=== PATIENT | male | born 1975 | race Caucasian/White ===

== ENCOUNTER 2018-05-09 02:10 | Emergency (ER) | payer OTHER ==
[~2018-05-09] VITALS: Ht 182.9 cm; Wt 110.2 kg
[~2018-05-09 02:10] MED LIST: ARIP2TAB3 PO; BUPR300T55 PO; DULO20CA PO; TRAZ-123 PO
[2018-05-09 02:15] VITALS: BP_SYST 181
--- NOTE | 2018-05-09 02:15 | NUR ---
Patient to ER bed 5 to gown for evaluation. Side rails up. Report given to NIKKI BEVERLY.
--- NOTE | 2018-05-09 02:20 | NUR ---
Patient AAO x4 sitting in bed, restless and diphoretic c/o groin/ dull testicular pain 8/ x 2 weeks. Patient denies trauma, denies nausea/ vomiting. Patient states pain is more in his right groin. No acute distress noted. Will continue to monitor.
[2018-05-09] MEDS ORDERED: NACL 0.9% 1,000 ML IV ONE (02:38)
--- NOTE | 2018-05-09 02:40 | NUR ---
ER at bedside examining patient.
[2018-05-09] MEDS ORDERED: DIPHENHYDRAMINE INJ 50 MG/ML VIAL IVP ONE ×2 (03:00→05:00)
[2018-05-09] MEDS ORDERED: MORPHINE 4 MG/ML INJ. SYRINGE IVP ONE ×2 (03:00→05:00)
[2018-05-09 03:12] LABS: BASOPHILS # (AUTO) 0.1 K/uL (0.0-0.2); EOSINOPHILS # (AUTO) 0.1 K/uL (0.0-0.4); EOSINOPHILS % (AUTO) 0.9 % (0.0-4.0); HEMATOCRIT 50.4 % (36-54); HEMOGLOBIN 17.6 g/dL (14.0-18.0); LYMPHOCYTES # (AUTO) 1.4 K/uL (1.0-5.5); LYMPHOCYTES % (AUTO) 20.4 % (20.5-51.5); MEAN CORPUSCULAR HEMOGLOBIN 33 pg (27-31); MEAN CORPUSCULAR HGB CONC 35 % (32-36); MEAN CORPUSCULAR VOLUME 94 fL (79.0-98.0); MONOCYTES # (AUTO) 0.3 K/uL (0.0-1.0); MONOCYTES % (AUTO) 4.7 % (1.7-9.3); NEUTROPHILS # (AUTO) 4.9 K/uL (1.8-7.7); PLATELET COUNT (AUTO) 271 K/uL (130-430); RED BLOOD CELL COUNT(AUTO) 5.35 MIL/uL (4.2-6.2); RED CELL DISTRIBUTION WIDTH 12.4 % (9.0-15.0); WHITE BLOOD COUNT (AUTO) 6.8 K/uL (4.8-10.8)
[2018-05-09 03:26] LABS: CALCIUM 9.4 mg/dL (8.4-11.0); CREATININE 0.96 mg/dL (0.55-1.30); POTASSIUM 3.5 mmol/L (3.5-5.1)
[2018-05-09 03:31] LABS: ALBUMIN 4.1 g/dL (3.4-4.8); TOTAL BILIRUBIN 0.7 mg/dL (0.0-1.0)
[2018-05-09] MEDS ORDERED: cefTRIAXone 0.5 GM in D5W 50 ML IV ONE (04:15)
[2018-05-09] MEDS ORDERED: LEVOFLOXACIN 500 MG TABLET PO ONE (04:15)
[2018-05-09] MEDS ORDERED: cefTRIAXone 1 GM VIAL ONE (04:25)
[2018-05-09] MEDS ORDERED: cefTRIAXone 1 GM IVPB PREMIX 50 ML IV ONE (04:26)
[2018-05-09 05:30] VITALS: BP_SYST 145
--- NOTE | 2018-05-09 05:30 | NUR ---
Patient given written and verbal discharge instructions and verbalizes understanding. ER MD discussed with patient the results and treatment provided. Patient in stable condition. ID arm band removed. IV catheter removed intact and dressing applied, no active bleeding. Rx of levaquin and tylenol with codeine given. Patient educated on pain management and to follow up with PMD. Pain Scale 0/10 . Opportunity for questions provided and answered. Medication side effect fact sheet provided.
== END 2018-05-09 05:30 | disposition home or self-care (01) ==
LOC: SED 02:10
DX: N50.819 Testicular pain, unspecified (principal); N45.1 Epididymitis; I10 Essential (primary) hypertension; F31.9 Bipolar disorder, unspecified; Z79.899 Other long term (current) drug therapy
CPT/HCPCS: 36415; 76870; 80053; 83605; 85025; 87040; 96361; 96365; 96375; 96376; 99285; J0696; J1200; J2270; J7030; 96366

== ENCOUNTER 2018-05-10 13:59 | Emergency (ER) | payer OTHER ==
[~2018-05-10] VITALS: Ht 182.9 cm; Wt 111.1 kg
[2018-05-10 14:03] VITALS: BP_SYST 147
[2018-05-10] MEDS ORDERED: NACL 0.9% 1,000 ML IV ONE (14:15)
[2018-05-10] MEDS ORDERED: ONDANSETRON HCL 4 MG/2 ML VIAL IVP ONE (14:15)
[2018-05-10] MEDS ORDERED: HYDROmorphone 2 MG/ML VIAL IVP ONE (14:15)
[2018-05-10 14:31] LABS: BILIRUBIN,URINE NEGATIVE (NEGATIVE); BLOOD, URINE 2+ (NEGATIVE); CLARITY/URINE CLEAR (CLEAR); COLOR,URINE YELLOW (YELLOW); GLUCOSE,URINE NEGATIVE (NEGATIVE); KETONES,URINE NEGATIVE (NEGATIVE); LEUKOCYTE ESTERASE ,URINE NEGATIVE (NEGATIVE); NITRITE, URINE NEGATIVE (NEGATIVE); PROTEIN URINE TRACE (NEGATIVE); UROBILINOGEN,URINE 0.2 (0.2-1.0)
[2018-05-10 14:41] LABS: BACTERIA,URINE RARE /HPF (None Seen); MUCUS,URINE None Seen /LPF (None Seen); RBC,URINE 0-3 /HPF (0-3); WBC,URINE 0-3 /HPF (0-3)
[2018-05-10 14:43] LABS: CALCIUM 9.2 mg/dL (8.4-11.0); CREATININE 0.95 mg/dL (0.55-1.30); POTASSIUM 3.7 mmol/L (3.5-5.1)
[2018-05-10 14:45] LABS: PROTHROMBIN TIME 9.8 SECS (9.5-12.5)
[2018-05-10 14:49] LABS: ALBUMIN 3.9 g/dL (3.4-4.8); TOTAL BILIRUBIN 0.5 mg/dL (0.0-1.0)
[2018-05-10] MEDS ORDERED: LEVOFLOXACIN 250 MG/D5W 50 ML IV ONE (15:15)
[2018-05-10] MEDS ORDERED: KETOROLAC TROMETHAMINE 30 MG VIAL IVP ONE (15:15)
[2018-05-10 16:15] VITALS: BP_SYST 135
[2018-05-10 16:49] LABS: BASOPHILS % (AUTO) 0.5 % (0.0-2.0); EOSINOPHILS # (AUTO) 0.1 K/uL (0.0-0.4); EOSINOPHILS % (AUTO) 1.9 % (0.0-4.0); HEMATOCRIT 48.8 % (36-54); HEMOGLOBIN 16.9 g/dL (14.0-18.0); LYMPHOCYTES # (AUTO) 1.1 K/uL (1.0-5.5); LYMPHOCYTES % (AUTO) 18.2 % (20.5-51.5); MEAN CORPUSCULAR HEMOGLOBIN 32 pg (27-31); MEAN CORPUSCULAR HGB CONC 35 % (32-36); MEAN CORPUSCULAR VOLUME 93 fL (79.0-98.0); MONOCYTES # (AUTO) 0.5 K/uL (0.0-1.0); MONOCYTES % (AUTO) 8.5 % (1.7-9.3); NEUTROPHILS # (AUTO) 4.4 K/uL (1.8-7.7); NEUTROPHILS % (AUTO) 70.9 % (40.0-70.0); PLATELET COUNT (AUTO) 279 K/uL (130-430); RED BLOOD CELL COUNT(AUTO) 5.22 MIL/uL (4.2-6.2); RED CELL DISTRIBUTION WIDTH 12.9 % (9.0-15.0); WHITE BLOOD COUNT (AUTO) 6.2 K/uL (4.8-10.8)
== END 2018-05-10 16:15 | disposition home or self-care (01) ==
LOC: SED 13:59
DX: N45.1 Epididymitis (principal); F32.9 Major depressive disorder, single episode, unspecified; F31.9 Bipolar disorder, unspecified; F43.10 Post-traumatic stress disorder, unspecified; Z90.49 Acquired absence of other specified parts of digestive tract
CPT/HCPCS: 36415; 74018; 76870; 80053; 81000; 83605; 85025; 85610; 87040; 96365; 96375; 99285; J1170; J1885; J1956; J2405; J7030

== ENCOUNTER 2018-05-14 11:51 | Emergency (ER) | payer OTHER ==
[~2018-05-14] VITALS: Ht 182.9 cm; Wt 113.4 kg
[2018-05-14 11:51] VITALS: BP_SYST 156
[2018-05-14] MEDS ORDERED: MORPHINE 4 MG/ML INJ. SYRINGE IVP ONE (12:15)
[2018-05-14] MEDS ORDERED: AZITHROMYCIN 250 MG TABLET PO ONE (12:15)
[2018-05-14] MEDS ORDERED: cefTRIAXone 250 MG VIAL IM ONE (12:15)
[2018-05-14 12:37] LABS: BASOPHILS % (AUTO) 0.9 % (0.0-2.0); EOSINOPHILS # (AUTO) 0.1 K/uL (0.0-0.4); EOSINOPHILS % (AUTO) 1.7 % (0.0-4.0); HEMATOCRIT 47.6 % (36-54); HEMOGLOBIN 16.4 g/dL (14.0-18.0); LYMPHOCYTES # (AUTO) 1.6 K/uL (1.0-5.5); LYMPHOCYTES % (AUTO) 28.6 % (20.5-51.5); MEAN CORPUSCULAR HEMOGLOBIN 33 pg (27-31); MEAN CORPUSCULAR HGB CONC 35 % (32-36); MEAN CORPUSCULAR VOLUME 95 fL (79.0-98.0); MONOCYTES # (AUTO) 0.6 K/uL (0.0-1.0); MONOCYTES % (AUTO) 11.1 % (1.7-9.3); NEUTROPHILS # (AUTO) 3.2 K/uL (1.8-7.7); NEUTROPHILS % (AUTO) 57.7 % (40.0-70.0); PLATELET COUNT (AUTO) 266 K/uL (130-430); RED BLOOD CELL COUNT(AUTO) 5.02 MIL/uL (4.2-6.2); RED CELL DISTRIBUTION WIDTH 13.3 % (9.0-15.0); WHITE BLOOD COUNT (AUTO) 5.5 K/uL (4.8-10.8)
[2018-05-14 12:42] LABS: BILIRUBIN,URINE NEGATIVE (NEGATIVE); BLOOD, URINE 2+ (NEGATIVE); CLARITY/URINE CLEAR (CLEAR); COLOR,URINE YELLOW (YELLOW); GLUCOSE,URINE NEGATIVE (NEGATIVE); KETONES,URINE TRACE (NEGATIVE); LEUKOCYTE ESTERASE ,URINE NEGATIVE (NEGATIVE); NITRITE, URINE NEGATIVE (NEGATIVE); PROTEIN URINE TRACE (NEGATIVE); UROBILINOGEN,URINE 0.2 (0.2-1.0)
[2018-05-14 12:49] LABS: CALCIUM 8.7 mg/dL (8.4-11.0); CREATININE 1.03 mg/dL (0.55-1.30); POTASSIUM 3.4 mmol/L (3.5-5.1)
[2018-05-14 12:54] LABS: ALBUMIN 3.6 g/dL (3.4-4.8); TOTAL BILIRUBIN 0.5 mg/dL (0.0-1.0)
[2018-05-14 13:12] LABS: BACTERIA,URINE FEW /HPF (None Seen); WBC,URINE 0-3 /HPF (0-3)
[2018-05-14 13:13] LABS: MUCUS,URINE None Seen /LPF (None Seen)
[2018-05-14 13:19] VITALS: BP_SYST 141
[2018-05-15 22:18] LABS: CHLAMYDIA TRACHOMATIS NAA Negative (Negative); NEISSERIA GONORRHOEAE NAA Negative (Negative)
== END 2018-05-14 13:21 | disposition home or self-care (01) ==
LOC: SED 11:51
DX: N45.1 Epididymitis (principal); F31.9 Bipolar disorder, unspecified; F41.9 Anxiety disorder, unspecified; Z90.49 Acquired absence of other specified parts of digestive tract; Z79.899 Other long term (current) drug therapy
CPT/HCPCS: 36415; 80053; 81000; 85025; 87491; 87591; 96372; 96374; 99284; J0696; J2270; Q0144

== ENCOUNTER 2018-06-20 17:03 | Emergency (ER) | payer OTHER ==
[~2018-06-20] VITALS: Ht 182.9 cm; Wt 113.4 kg
[2018-06-20 17:10] VITALS: BP_SYST 162
[2018-06-20] MEDS ORDERED: KETOROLAC TROMETHAMINE 60 MG/2 ML VIAL IM ONE (17:45)
[2018-06-20 17:56] LABS: CALCIUM 8.9 mg/dL (8.4-11.0); CREATININE 1.03 mg/dL (0.55-1.30); POTASSIUM 3.3 mmol/L (3.5-5.1)
[2018-06-20 18:01] LABS: ALBUMIN 3.8 g/dL (3.4-4.8); TOTAL BILIRUBIN 0.4 mg/dL (0.0-1.0)
[2018-06-20 19:26] LABS: BILIRUBIN,URINE NEGATIVE (NEGATIVE); BLOOD, URINE 1+ (NEGATIVE); CLARITY/URINE CLEAR (CLEAR); COLOR,URINE YELLOW (YELLOW); GLUCOSE,URINE NEGATIVE (NEGATIVE); KETONES,URINE NEGATIVE (NEGATIVE); LEUKOCYTE ESTERASE ,URINE NEGATIVE (NEGATIVE); NITRITE, URINE NEGATIVE (NEGATIVE); PROTEIN URINE NEGATIVE (NEGATIVE); UROBILINOGEN,URINE 0.2 (0.2-1.0)
[2018-06-20 19:47] LABS: BACTERIA,URINE RARE /HPF (None Seen); MUCUS,URINE None Seen /LPF (None Seen); WBC,URINE 0-3 /HPF (0-3); YEAST,URINE None Seen /HPF (None Seen)
[2018-06-20 20:05] VITALS: BP_SYST 138
== END 2018-06-20 20:05 | disposition home or self-care (01) ==
LOC: SED 17:03
DX: N45.1 Epididymitis (principal); F31.9 Bipolar disorder, unspecified; F41.9 Anxiety disorder, unspecified; Z90.49 Acquired absence of other specified parts of digestive tract; Z79.899 Other long term (current) drug therapy
CPT/HCPCS: 36415; 76870; 80053; 81000; 96372; 99285; J1885

== ENCOUNTER 2018-08-14 18:07 | Emergency (ER) | payer OTHER ==
[~2018-08-14] VITALS: Ht 182.9 cm; Wt 115.7 kg
[2018-08-14 18:13] VITALS: BP_SYST 157
[2018-08-14] MEDS ORDERED: NACL 0.9% 1,000 ML IV ONE (18:33)
[2018-08-14 18:41] LABS: BILIRUBIN,URINE NEGATIVE (NEGATIVE); BLOOD, URINE 1+ (NEGATIVE); CLARITY/URINE CLEAR (CLEAR); COLOR,URINE YELLOW (YELLOW); GLUCOSE,URINE NEGATIVE (NEGATIVE); KETONES,URINE NEGATIVE (NEGATIVE); LEUKOCYTE ESTERASE ,URINE NEGATIVE (NEGATIVE); NITRITE, URINE NEGATIVE (NEGATIVE); PH,URINE 6.5 (5.0-8.0); PROTEIN URINE NEGATIVE (NEGATIVE); UROBILINOGEN,URINE 0.2 (0.2-1.0)
[2018-08-14] MEDS ORDERED: KETOROLAC TROMETHAMINE 30 MG VIAL IVP ONE (18:45)
[2018-08-14] MEDS ORDERED: ONDANSETRON HCL 4 MG/2 ML VIAL IVP ONE (18:45)
[2018-08-14] MEDS ORDERED: DIPHENHYDRAMINE INJ 50 MG/ML VIAL IVP ONE (18:45)
[2018-08-14] MEDS ORDERED: MORPHINE 4 MG/ML INJ. SYRINGE IVP ONE (18:45)
[2018-08-14 18:46] LABS: BACTERIA,URINE RARE /HPF (None Seen); RBC,URINE 0-3 /HPF (0-3); WBC,URINE 0-3 /HPF (0-3)
[2018-08-14 18:54] LABS: BASOPHILS # (AUTO) 0.1 K/uL (0.0-0.2); BASOPHILS % (AUTO) 1.5 % (0.0-2.0); EOSINOPHILS # (AUTO) 0.1 K/uL (0.0-0.4); EOSINOPHILS % (AUTO) 1.5 % (0.0-4.0); HEMATOCRIT 46.4 % (36-54); HEMOGLOBIN 15.9 g/dL (14.0-18.0); LYMPHOCYTES # (AUTO) 1.6 K/uL (1.0-5.5); MEAN CORPUSCULAR HEMOGLOBIN 33 pg (27-31); MEAN CORPUSCULAR HGB CONC 34 % (32-36); MEAN CORPUSCULAR VOLUME 97 fL (79.0-98.0); MONOCYTES # (AUTO) 0.5 K/uL (0.0-1.0); MONOCYTES % (AUTO) 6.8 % (1.7-9.3); NEUTROPHILS # (AUTO) 4.5 K/uL (1.8-7.7); NEUTROPHILS % (AUTO) 66.2 % (40.0-70.0); PLATELET COUNT (AUTO) 319 K/uL (130-430); RED CELL DISTRIBUTION WIDTH 13.1 % (9.0-15.0); WHITE BLOOD COUNT (AUTO) 6.8 K/uL (4.8-10.8)
[2018-08-14 19:03] LABS: CALCIUM 8.8 mg/dL (8.4-11.0); CREATININE 0.98 mg/dL (0.55-1.30)
[2018-08-14 19:07] LABS: ALBUMIN 3.7 g/dL (3.4-4.8); TOTAL BILIRUBIN 0.4 mg/dL (0.0-1.0)
[2018-08-14] MEDS ORDERED: MORPHINE 2 MG/ML INJ. SYRINGE IVP ONE (21:30)
[2018-08-14] MEDS ORDERED: MORPHINE 2 MG/ML INJ. SYRINGE ONE (21:37)
[2018-08-14 22:13] VITALS: BP_SYST 142
== END 2018-08-14 22:13 | disposition home or self-care (01) ==
LOC: SED 18:07
DX: N50.3 Cyst of epididymis (principal); N45.1 Epididymitis; N50.812 Left testicular pain; F31.9 Bipolar disorder, unspecified; F41.9 Anxiety disorder, unspecified; F43.10 Post-traumatic stress disorder, unspecified; Z90.49 Acquired absence of other specified parts of digestive tract; Z79.899 Other long term (current) drug therapy
CPT/HCPCS: 36415; 74018; 76870; 80053; 81000; 85025; 96365; 96375; 96376; 99284; J1200; J1885; J1956; J2270 ×2; J2405; J7030

== ENCOUNTER 2018-08-20 14:27 | Emergency (ER) | payer MEDICAID, OTHER ==
[~2018-08-20] VITALS: Ht 182.9 cm; Wt 115.7 kg
[2018-08-20 14:33] VITALS: BP_SYST 160
--- NOTE | 2018-08-20 14:36 | NUR ---
Patient to ER bed 05 to gown for evaluation. Side rails up.
--- NOTE | 2018-08-20 14:44 | NUR ---
BUDDY Ortiz at bedside examining patient.
--- NOTE | 2018-08-20 14:45 | NUR ---
Pt C/O right and left testicular pain since 1100 this morning. Pt was discharged for the same chief complaint last and has been having difficulty filling prescriptions. Pt stats pain radiates from the left to the right teste and is an 8/10. Vital signs are stable and will continue to monitor.
--- NOTE | 2018-08-20 14:59 | NUR ---
Radiology at bedside for xray
[2018-08-20] MEDS ORDERED: LEVOFLOXACIN 500 MG TABLET PO ONE (15:00)
[2018-08-20] MEDS ORDERED: HYDROcodone/ACETAMIN 5-325 MG TAB (NORCO/ VICODIN) PO ONE (15:00)
--- NOTE | 2018-08-20 15:57 | NUR ---
Pt resting quietly in bed, no acute distress noted.
[2018-08-20 16:05] VITALS: BP_SYST 150
--- NOTE | 2018-08-20 16:05 | NUR ---
Patient given written and verbal discharge instructions and verbalizes understanding. ER MD discussed with patient the results and treatment provided. Patient in stable condition. ID arm band removed. Rx of Ibuprofen, Levaquin, and [place] given. Patient educated on pain management and to follow up with PMD. Pain Scale 4/10. Given prescription for pain management to control pain at home. Opportunity for questions provided and answered. Medication side effect fact sheet provided.
== END 2018-08-20 16:05 | disposition home or self-care (01) ==
LOC: SED 14:27
DX: S62.317A Displaced fracture of base of fifth metacarpal bone, left hand, initial encounter for closed fracture (principal); N45.1 Epididymitis; F43.10 Post-traumatic stress disorder, unspecified; F41.9 Anxiety disorder, unspecified; F31.9 Bipolar disorder, unspecified; R03.0 Elevated blood-pressure reading, without diagnosis of hypertension; Z90.49 Acquired absence of other specified parts of digestive tract; Z79.899 Other long term (current) drug therapy; W20.8XXA Other cause of strike by thrown, projected or falling object, initial encounter; Y93.89 Activity, other specified; Y92.89 Other specified places as the place of occurrence of the external cause; Y99.8 Other external cause status
CPT/HCPCS: 99283

== ENCOUNTER 2018-09-14 19:51 | Emergency (ER) | payer MEDICAID, OTHER ==
[~2018-09-14] VITALS: Ht 182.9 cm; Wt 124.7 kg
[2018-09-14 20:09] VITALS: BP_SYST 144
== END 2018-09-14 21:31 | disposition left against medical advice (07) ==
LOC: SED 19:51
DX: K08.89 Other specified disorders of teeth and supporting structures (principal); Z53.21 Procedure and treatment not carried out due to patient leaving prior to being seen by health care provider

== ENCOUNTER 2018-09-15 14:35 | Emergency (ER) | payer OTHER, MEDICAID ==
[~2018-09-15] VITALS: Ht 182.9 cm; Wt 124.7 kg
[2018-09-15 14:53] VITALS: BP_SYST 191
[2018-09-15 15:42] VITALS: BP_SYST 162
== END 2018-09-15 15:42 | disposition home or self-care (01) ==
LOC: SED 14:35
DX: K03.81 Cracked tooth (principal); F43.10 Post-traumatic stress disorder, unspecified; F41.9 Anxiety disorder, unspecified; F31.9 Bipolar disorder, unspecified; I10 Essential (primary) hypertension; Z90.49 Acquired absence of other specified parts of digestive tract; Z79.899 Other long term (current) drug therapy
CPT/HCPCS: 99283

== ENCOUNTER 2018-09-22 03:35 | Emergency (ER) | payer OTHER, MEDICAID ==
[~2018-09-22] VITALS: Ht 182.9 cm; Wt 124.7 kg
[2018-09-22 04:05] VITALS: BP_SYST 164
--- NOTE | 2018-09-22 04:05 | NUR ---
Pt placed to ER bed 08. Pt c/o Right testicular pain that radiates into right groin x 4 days. +nausea, urinary frequency of 5 times/day. Denies dysuria. Pt has hx of epididymitis. Pt also c/o right lower molar pain since June. Pt states that he has a dentist appointment for tooth extraction on October 01.
--- NOTE | 2018-09-22 04:15 | NUR ---
Dr. Salmeorn at bedside.
[2018-09-22] MEDS ORDERED: AZITHROMYCIN 250 MG TABLET PO ONE (04:30)
[2018-09-22] MEDS ORDERED: KETOROLAC TROMETHAMINE 60 MG/2 ML VIAL IM ONE (04:30)
[2018-09-22] MEDS ORDERED: cefTRIAXone 250 MG VIAL IM ONE (04:30)
[2018-09-22] MEDS ORDERED: LIDOCAINE 1%, 20 ML MDV 20 ML ONE (04:42)
[2018-09-22 05:18] VITALS: BP_SYST 124
--- NOTE | 2018-09-22 05:18 | NUR ---
Patient given written and verbal discharge instructions and verbalizes understanding. ER MD discussed with patient the results and treatment provided. Patient in stable condition. ID arm band removed. Rx of Motrin, Tramadol, and Doxycycline given. Patient educated on pain management and to follow up with PMD. Pain Scale 2/10. Opportunity for questions provided and answered. Medication side effect fact sheet provided.
== END 2018-09-22 05:18 | disposition home or self-care (01) ==
LOC: SED 03:35
DX: N45.1 Epididymitis (principal); K03.81 Cracked tooth
CPT/HCPCS: 96372; 99283; J0696; J1885; J2001; Q0144

== ENCOUNTER 2018-09-29 03:33 | Emergency (ER) | payer MEDICAID, OTHER ==
[~2018-09-29] VITALS: Ht 182.9 cm; Wt 117.9 kg
[2018-09-29 03:44] VITALS: BP_SYST 165
--- NOTE | 2018-09-29 03:51 | NUR ---
Patient to ER bed 5 to gown for evaluation. Side rails up. Report given to NIKKI Delvalle.
--- NOTE | 2018-09-29 03:51 | NUR ---
Right testicular swelling and pain, radiating to right pelvis x 2 days. Pt seen here in ER 09/22/18 for same s/s, tx with Azithromycin and Rocephin and completed most of doxycycline with 5 pills left. + nausea. Denies hematuria, dysuria or penile discharge.
--- NOTE | 2018-09-29 04:10 | NUR ---
Dr. Davidson at bedside to assess pt. No testicular swelling noted. Pt c/o severe pain when MD assesses for Right inguinal hernia, no hernia present. Pt placed in gown, awaiting for U/S.
--- NOTE | 2018-09-29 04:25 | NUR ---
# 20 gauge angiocath placed to LAC. Use of asceptic technique. Opsite placed over site. Blood return noted. Blood for lab drawn from site. Flushed with 10 cc of normal saline. No evidence of infiltration noted. Patient tolerated well.
[2018-09-29] MEDS ORDERED: MORPHINE 4 MG/ML INJ. SYRINGE IVP ONE ×2 (04:30→05:15)
[2018-09-29 05:02] LABS: RED BLOOD CELL COUNT(AUTO) 4.84 MIL/uL (4.2-6.2); WHITE BLOOD COUNT (AUTO) 6.9 K/uL (4.8-10.8)
[2018-09-29 05:03] LABS: BASOPHILS % (AUTO) 1.1 % (0.0-2.0); EOSINOPHILS % (AUTO) 1.8 % (0.0-4.0); HEMATOCRIT 45.6 % (36-54); HEMOGLOBIN 15.7 g/dL (14.0-18.0); LYMPHOCYTES # (AUTO) 2.1 K/uL (1.0-5.5); LYMPHOCYTES % (AUTO) 29.9 % (20.5-51.5); MEAN CORPUSCULAR HEMOGLOBIN 32 pg (27-31); MEAN CORPUSCULAR HGB CONC 34 % (32-36); MEAN CORPUSCULAR VOLUME 94 fL (79.0-98.0); MONOCYTES # (AUTO) 0.6 K/uL (0.0-1.0); MONOCYTES % (AUTO) 8.5 % (1.7-9.3); NEUTROPHILS % (AUTO) 58.7 % (40.0-70.0); PLATELET COUNT (AUTO) 369 K/uL (130-430); RED CELL DISTRIBUTION WIDTH 12.5 % (9.0-15.0)
[2018-09-29 05:04] LABS: BASOPHILS # (AUTO) 0.1 K/uL (0.0-0.2); EOSINOPHILS # (AUTO) 0.1 K/uL (0.0-0.4)
[2018-09-29 05:05] LABS: ALBUMIN 3.6 g/dL (3.4-4.8); CALCIUM 9.1 mg/dL (8.4-11.0); CREATININE 1.01 mg/dL (0.55-1.30); POTASSIUM 3.5 mmol/L (3.5-5.1); TOTAL BILIRUBIN 0.4 mg/dL (0.0-1.0)
[2018-09-29 05:08] LABS: BILIRUBIN,URINE NEGATIVE (NEGATIVE); BLOOD, URINE TRACE (NEGATIVE); CLARITY/URINE CLEAR (CLEAR); COLOR,URINE YELLOW (YELLOW); GLUCOSE,URINE NEGATIVE (NEGATIVE); KETONES,URINE NEGATIVE (NEGATIVE); LEUKOCYTE ESTERASE ,URINE TRACE (NEGATIVE); NITRITE, URINE NEGATIVE (NEGATIVE); PH,URINE 5.5 (5.0-8.0); PROTEIN URINE NEGATIVE (NEGATIVE); UROBILINOGEN,URINE 0.2 (0.2-1.0)
[2018-09-29 05:09] LABS: BACTERIA,URINE FEW /HPF (None Seen); MUCUS,URINE None Seen /LPF (None Seen); RBC,URINE 0-3 /HPF (0-3)
--- NOTE | 2018-09-29 05:10 | NUR ---
Pt c/o pain to Right testicle 01/30. Dr. Davidson notified.
--- NOTE | 2018-09-29 05:40 | NUR ---
Pt returns from U/S, no needs verbalized at this time.
--- NOTE | 2018-09-29 06:06 | NUR ---
Dr. Davidson at bedside to discuss U/S results.
[2018-09-29 06:20] VITALS: BP_SYST 135
--- NOTE | 2018-09-29 06:20 | NUR ---
Patient given written and verbal discharge instructions and verbalizes understanding. ER MD discussed with patient the results and treatment provided. Patient in stable condition. ID arm band removed. IV catheter removed intact and dressing applied, no active bleeding. Rx of [place] given. Patient educated on pain management and to follow up with PMD. Pain Scale 2/10, tolerable. Opportunity for questions provided and answered. Medication side effect fact sheet provided.
== END 2018-09-29 06:20 | disposition home or self-care (01) ==
LOC: SED 03:33
DX: N43.3 Hydrocele, unspecified (principal); I10 Essential (primary) hypertension; F41.9 Anxiety disorder, unspecified; F31.9 Bipolar disorder, unspecified; F43.10 Post-traumatic stress disorder, unspecified; Z79.899 Other long term (current) drug therapy
CPT/HCPCS: 36415; 76870; 80053; 81000; 85025; 96374; 96375; 99284; J2270

== ENCOUNTER 2018-10-03 22:46 | Emergency (ER) | payer MEDICAID, OTHER ==
[~2018-10-03] VITALS: Ht 182.9 cm; Wt 117.9 kg
[2018-10-03 22:58] VITALS: BP_SYST 181
--- NOTE | 2018-10-03 23:02 | NUR ---
Patient triaged and placed in waiting room. VSS and patient appears in no acute distress at this time. Accompanied by , awaiting available bed, and MD notified of need for MSE.
[2018-10-03 23:55] LABS: BASOPHILS # (AUTO) 0.1 K/uL (0.0-0.2); EOSINOPHILS # (AUTO) 0.1 K/uL (0.0-0.4); EOSINOPHILS % (AUTO) 0.9 % (0.0-4.0); HEMATOCRIT 46.8 % (36-54); HEMOGLOBIN 16.2 g/dL (14.0-18.0); LYMPHOCYTES # (AUTO) 2.7 K/uL (1.0-5.5); LYMPHOCYTES % (AUTO) 29.8 % (20.5-51.5); MEAN CORPUSCULAR HEMOGLOBIN 33 pg (27-31); MEAN CORPUSCULAR HGB CONC 35 % (32-36); MEAN CORPUSCULAR VOLUME 96 fL (79.0-98.0); MONOCYTES # (AUTO) 0.7 K/uL (0.0-1.0); MONOCYTES % (AUTO) 7.6 % (1.7-9.3); NEUTROPHILS # (AUTO) 5.4 K/uL (1.8-7.7); NEUTROPHILS % (AUTO) 60.7 % (40.0-70.0); PLATELET COUNT (AUTO) 405 K/uL (130-430); RED BLOOD CELL COUNT(AUTO) 4.89 MIL/uL (4.2-6.2); RED CELL DISTRIBUTION WIDTH 12.3 % (9.0-15.0)
[2018-10-04 00:06] LABS: CALCIUM 9.4 mg/dL (8.4-11.0); CREATININE 0.99 mg/dL (0.55-1.30); POTASSIUM 3.6 mmol/L (3.5-5.1)
[2018-10-04 00:11] LABS: ALBUMIN 3.6 g/dL (3.4-4.8); TOTAL BILIRUBIN 0.4 mg/dL (0.0-1.0)
--- NOTE | 2018-10-04 01:26 | NUR ---
Patient to ER bed 7 to gown for evaluation. Side rails up. Report given to NIKKI Avila.
--- NOTE | 2018-10-04 01:38 | NUR ---
Patient arrived with right testicular swelling and pain. Patient is aaox4 and able to verbalize his needs. Dull pain of / beginning on 10/03/18 at 1600. Denies any chest pain, n/v, chills, or fever. Breathing is equal and unlabored. Patient is able to ambulate to the restroom with a steady gait.
--- NOTE | 2018-10-04 01:45 | NUR ---
ER at bedside examining patient.
[2018-10-04 02:47] VITALS: BP_SYST 144
--- NOTE | 2018-10-04 02:47 | NUR ---
Patient given written and verbal discharge instructions and verbalizes understanding. ER MD discussed with patient the results and treatment provided. Patient in stable condition. ID arm band removed. Rx of [place] 10/325mg given. Patient educated on pain management and to follow up with PMD. Pain Scale 3/10. Opportunity for questions provided and answered. Medication side effect fact sheet provided.
== END 2018-10-04 02:47 | disposition home or self-care (01) ==
LOC: SED 22:46
DX: N43.3 Hydrocele, unspecified (principal); F31.9 Bipolar disorder, unspecified; F41.9 Anxiety disorder, unspecified; F43.10 Post-traumatic stress disorder, unspecified; I10 Essential (primary) hypertension; Z79.899 Other long term (current) drug therapy
CPT/HCPCS: 36415; 80053; 85025; 99283

== ENCOUNTER 2018-10-19 14:16 | Emergency (ER) | payer MEDICAID, OTHER ==
[~2018-10-19] VITALS: Ht 182.9 cm; Wt 117.9 kg
[~2018-10-19 14:16] MED LIST changes: -TRAZ-123 PO; +TRAZ-218 PO
[2018-10-19 14:21] VITALS: BP_SYST 128
[2018-10-19] MEDS ORDERED: KETOROLAC TROMETHAMINE 60 MG/2 ML VIAL IM ONE (14:30)
[2018-10-19 17:22] VITALS: BP_SYST 137
== END 2018-10-19 17:22 | disposition home or self-care (01) ==
LOC: SED 14:16
DX: N50.82 Scrotal pain (principal); F41.9 Anxiety disorder, unspecified; F43.10 Post-traumatic stress disorder, unspecified; F31.9 Bipolar disorder, unspecified; Z90.49 Acquired absence of other specified parts of digestive tract; Z79.899 Other long term (current) drug therapy
CPT/HCPCS: 76870; 96372; 99284; J1885

== ENCOUNTER 2018-10-27 16:18 | Emergency (ER) | payer MEDICAID, OTHER ==
[~2018-10-27 16:18] MED LIST changes: +TRAZ-123 PO; -TRAZ-218 PO
[2018-10-27] MEDS ORDERED: KETOROLAC TROMETHAMINE 60 MG/2 ML VIAL IM ONE (18:14)
[2018-10-27] MEDS ORDERED: ONDANSETRON 4 MG ODT TAB ONE (18:14)
[2018-10-27] MEDS ORDERED: CIPROFLOXACIN HCL 500 MG TABLET ONE (18:15)
[2018-10-27] MEDS ORDERED: MORPHINE SULFATE 10 MG/ML VIAL ONE (18:16)
[2018-10-28 14:26] LABS: BILIRUBIN,URINE NEGATIVE (NEGATIVE); BLOOD, URINE 1+ (NEGATIVE); CLARITY/URINE CLEAR (CLEAR); COLOR,URINE YELLOW (YELLOW); GLUCOSE,URINE NEGATIVE (NEGATIVE); KETONES,URINE NEGATIVE (NEGATIVE); LEUKOCYTE ESTERASE ,URINE NEGATIVE (NEGATIVE); NITRITE, URINE NEGATIVE (NEGATIVE); PROTEIN URINE NEGATIVE (NEGATIVE); UROBILINOGEN,URINE 0.2 (0.2-1.0)
[2018-10-28 14:28] LABS: BACTERIA,URINE RARE /HPF (None Seen); RBC,URINE 0-3 /HPF (0-3); WBC,URINE 0-3 /HPF (0-3)
[2018-10-28 14:30] LABS: CALCIUM 9.1 mg/dL (8.4-11.0); CREATININE 0.9 mg/dL (0.55-1.30); POTASSIUM 3.8 mmol/L (3.5-5.1)
[2018-10-28 14:31] LABS: HEMATOCRIT 43.1 % (36-54); HEMOGLOBIN 15.2 g/dL (14.0-18.0); MEAN CORPUSCULAR HEMOGLOBIN 33 pg (27-31); MEAN CORPUSCULAR HGB CONC 35 % (32-36); MEAN CORPUSCULAR VOLUME 94 fL (79.0-98.0); RED BLOOD CELL COUNT(AUTO) 4.58 MIL/uL (4.2-6.2); WHITE BLOOD COUNT (AUTO) 6.3 K/uL (4.8-10.8)
[2018-10-28 14:32] LABS: BASOPHILS % (AUTO) 0.7 % (0.0-2.0); EOSINOPHILS % (AUTO) 0.6 % (0.0-4.0); LYMPHOCYTES # (AUTO) 1.7 K/uL (1.0-5.5); LYMPHOCYTES % (AUTO) 27.3 % (20.5-51.5); MONOCYTES # (AUTO) 0.5 K/uL (0.0-1.0); MONOCYTES % (AUTO) 7.8 % (1.7-9.3); NEUTROPHILS % (AUTO) 63.6 % (40.0-70.0); PLATELET COUNT (AUTO) 264 K/uL (130-430); RED CELL DISTRIBUTION WIDTH 13.1 % (9.0-15.0)
== END 2018-10-27 19:16 | disposition home or self-care (01) ==
LOC: SED 16:18
DX: N45.1 Epididymitis (principal); F43.10 Post-traumatic stress disorder, unspecified; F31.9 Bipolar disorder, unspecified
CPT/HCPCS: 36415; 76870; 80048; 81000; 85025; 96372; 99284; J1885; J2270; Q0162

== ENCOUNTER 2018-12-03 19:25 | Emergency (ER) | payer OTHER, MEDICAID ==
[~2018-12-03] VITALS: Ht 182.9 cm; Wt 120.2 kg
[~2018-12-03 19:25] MED LIST changes: -TRAZ-123 PO; +TRAZ-218 PO
--- NOTE | 2018-12-03 19:59 | NUR ---
Pt placed to ER bed 08. Report given to NIKKI Anderson.
--- NOTE | 2018-12-03 20:00 | NUR ---
Pt moved to h1.
--- NOTE | 2018-12-03 20:01 | NUR ---
Pt AAOx4 ambulated into ED c/o pain and swelling to L hand s/p cactus splinter lodging into dorsal L hand s/p brushing up again cactus plant. No active bleeding present. No other injuries/complaints per pt/noted. Will continue to monitor.
--- NOTE | 2018-12-03 20:02 | NUR ---
ER HORACIO Nickerson examining patient.
[2018-12-03] MEDS ORDERED: HYDROcodone/ACETAMIN 7.5-325 MG TAB PO ONE (20:15)
[2018-12-03] MEDS ORDERED: LIDOCAINE 1% 10 MG/ML, 20 ML MDV INJ ONE (20:15)
--- NOTE | 2018-12-03 20:59 | NUR ---
Suture set up complete. Liya LEONARD notified.
--- NOTE | 2018-12-03 21:30 | NUR ---
Pt moved to bed 06. Dr. Armstrong at bedside using sterile technique to remove foreign object from pt's left hand.
[2018-12-03] MEDS ORDERED: traMADol HCL HCL 50 MG TABLET (ULTRAM) PO ONE (22:15)
[2018-12-03 22:28] VITALS: BP_SYST 129
--- NOTE | 2018-12-03 22:28 | NUR ---
Patient given written and verbal discharge instructions and verbalizes understanding. ER MD Armstrong discussed with patient the results and treatment provided. Patient in stable condition. ID arm band removed. Rx of Tramadol, Clindamycin given. Patient educated on pain management and to follow up with PMD. Pain Scale 0. Opportunity for questions provided and answered. Medication side effect fact sheet provided.
== END 2018-12-03 22:28 | disposition home or self-care (01) ==
LOC: SED 19:25
DX: S60.552A Superficial foreign body of left hand, initial encounter (principal); F31.9 Bipolar disorder, unspecified; F41.9 Anxiety disorder, unspecified; F43.10 Post-traumatic stress disorder, unspecified; I10 Essential (primary) hypertension; Z90.49 Acquired absence of other specified parts of digestive tract; Z79.899 Other long term (current) drug therapy; W60.XXXA Contact with nonvenomous plant thorns and spines and sharp leaves, initial encounter; Y93.89 Activity, other specified; Y92.096 Garden or yard of other non-institutional residence as the place of occurrence of the external cause; Y99.8 Other external cause status
CPT/HCPCS: 73130; 99284; J2001

== ENCOUNTER 2019-03-27 20:24 | Emergency (ER) | payer MEDICAID, OTHER ==
[~2019-03-27] VITALS: Ht 182.9 cm; Wt 113.4 kg
[2019-03-27 20:35] VITALS: BP_SYST 157
--- NOTE | 2019-03-27 20:42 | NUR ---
TPatient triaged and placed in waiting room. VSS and patient appears in no acute distress at this time. Accompanied by self, awaiting available bed, and MD notified of need for MSE.
--- NOTE | 2019-03-27 21:58 | NUR ---
Patient to ER bed 08 to gown for evaluation. Side rails up. Report given to NIKKI Contreras.
--- NOTE | 2019-03-27 21:59 | NUR ---
Patient ambulatory to ultrasound, accompanied by supervisor pyrotechnic loading. No distress noted.
--- NOTE | 2019-03-27 22:20 | NUR ---
Pt ambulatory to bed from US. Pt tolerated well, no signs of acute distress or discomfort noted. Will continue to monitor pt.
--- NOTE | 2019-03-27 22:22 | NUR ---
Pt is a 44 y/o male who presents to the ER w/ concerns of testicular pain that is sweling and has been red for the last two days. Pt also c/o burning w/ uriation and increased freq of urine. Pt has hx of epididymitis. Pt denies any discharge from his penis or any concers for STD's. Pt also denies any recent injury or trauma and denies hematuria. Will cont to monitor pt.
--- NOTE | 2019-03-27 22:25 | NUR ---
BUDDY Gonzalez at bedside examining patient.
--- NOTE | 2019-03-27 23:10 | NUR ---
Pt in bed resting w/ eyes closed, no signs of acute distress or discomfort noted. Will cont to monitor.
[2019-03-27 23:13] LABS: BILIRUBIN,URINE NEGATIVE (NEGATIVE); BLOOD, URINE 1+ (NEGATIVE); CLARITY/URINE CLEAR (CLEAR); COLOR,URINE YELLOW (YELLOW); GLUCOSE,URINE NEGATIVE (NEGATIVE); KETONES,URINE NEGATIVE (NEGATIVE); LEUKOCYTE ESTERASE ,URINE NEGATIVE (NEGATIVE); NITRITE, URINE NEGATIVE (NEGATIVE); PH,URINE 5.5 (5.0-8.0); PROTEIN URINE NEGATIVE (NEGATIVE); UROBILINOGEN,URINE 0.2 (0.2-1.0)
[2019-03-27 23:17] LABS: BACTERIA,URINE FEW /HPF (None Seen); WBC,URINE 0-3 /HPF (0-3)
[2019-03-27 23:53] VITALS: BP_SYST 157
--- NOTE | 2019-03-27 23:53 | NUR ---
Patient given written and verbal discharge instructions and verbalizes understanding. ER MD Dr. Gonzalez discussed with patient the results and treatment provided. Patient in stable condition. ID arm band removed. Rx of doxycycline given. Patient educated on pain management and to follow up with PMD w/ 3-4 days. Pain Scale 0/10. Opportunity for questions provided and answered. Medication side effect fact sheet provided.
== END 2019-03-27 23:53 | disposition home or self-care (01) ==
LOC: SED 20:24
DX: N45.1 Epididymitis (principal); N43.3 Hydrocele, unspecified; F31.9 Bipolar disorder, unspecified; F41.9 Anxiety disorder, unspecified; F43.10 Post-traumatic stress disorder, unspecified; I10 Essential (primary) hypertension; Z79.899 Other long term (current) drug therapy
CPT/HCPCS: 76870-TC; 81000-TC; 99284

== ENCOUNTER 2019-04-09 19:44 | Emergency (ER) | payer MEDICAID, OTHER ==
[~2019-04-09] VITALS: Ht 182.9 cm; Wt 113.4 kg
[2019-04-09 20:03] VITALS: BP_SYST 129
--- NOTE | 2019-04-09 20:10 | NUR ---
Patient triaged and placed in waiting room. VSS and patient appears in no acute distress at this time. Accompanied by self, awaiting available bed, and MD notified of need for MSE.
--- NOTE | 2019-04-09 21:21 | NUR ---
Patient to [facility] bed 1 for evaluation. Side rails up. Report given to NIKKI Villarreal.
--- NOTE | 2019-04-09 21:26 | NUR ---
Pt complains of headache for the past few days. Pt states he has blurred vision and sensitive to light. Per patient he took Ibuprofen and Tylenol with no relief. No other injuries/complaints per patient or noted.
--- NOTE | 2019-04-09 21:37 | NUR ---
BUDDY Gonzalez at bedside for medical evaluation.
[2019-04-09] MEDS ORDERED: NACL 0.9% 1,000 ML IV ONE (21:41)
[2019-04-09] MEDS ORDERED: PROCHLORPERAZINE EDISYLATE 10 MG/2 ML VIAL IVP ONE (21:45)
[2019-04-09] MEDS ORDERED: DIPHENHYDRAMINE INJ 50 MG/ML VIAL IVP ONE (21:45)
[2019-04-09] MEDS ORDERED: HYDROcodone/ACETAMIN 5-325 MG TAB (NORCO/ VICODIN) PO ONE (23:00)
[2019-04-09 23:25] VITALS: BP_SYST 115
--- NOTE | 2019-04-09 23:25 | NUR ---
Patient given written and verbal discharge instructions and verbalizes understanding. ER MD discussed with patient the results and treatment provided. Patient in stable condition. ID arm band removed. IV catheter removed intact and dressing applied, no active bleeding. No Rx given. Patient educated on pain management and to follow up with PMD. Pain Scale 0. Opportunity for questions provided and answered. Medication side effect fact sheet provided.
== END 2019-04-09 23:25 | disposition home or self-care (01) ==
LOC: SED 19:44
DX: R51 Headache (principal); F31.9 Bipolar disorder, unspecified; F41.9 Anxiety disorder, unspecified; F43.10 Post-traumatic stress disorder, unspecified; E78.00 Pure hypercholesterolemia, unspecified; Z90.49 Acquired absence of other specified parts of digestive tract; Z79.899 Other long term (current) drug therapy
CPT/HCPCS: 96374; 96375; 99283; J0780; J1200; J7030

== ENCOUNTER 2019-06-07 09:04 | Emergency (ER) | payer MEDICAID, OTHER ==
[~2019-06-07] VITALS: Ht 182.9 cm; Wt 120.2 kg
[2019-06-07 09:16] VITALS: BP_SYST 141; BP_SYST 155
--- NOTE | 2019-06-07 09:25 | NUR ---
Patient to ER bed 7 to gown for evaluation. Side rails up.
--- NOTE | 2019-06-07 09:30 | NUR ---
Pt presents to ED for med refill.Pt states " lost my bottle of medication". Pt requesting Bupropion 150mg until followup with [facility] .
--- NOTE | 2019-06-07 09:31 | NUR ---
ER at bedside examining patient.
--- NOTE | 2019-06-07 10:11 | NUR ---
Patient given written and verbal discharge instructions and verbalizes understanding. ER MD discussed with patient the results and treatment provided. Patient in stable condition. ID arm band removed. Rx of bupropion given. Patient educated on pain management and to follow up with PMD. Pain Scale 0. Opportunity for questions provided and answered. Medication side effect fact sheet provided.
[2019-06-07 10:19] VITALS: BP_SYST 139
== END 2019-06-07 10:11 | disposition home or self-care (01) ==
LOC: SED 09:04
DX: Z76.0 Encounter for issue of repeat prescription (principal); F31.9 Bipolar disorder, unspecified; Z79.899 Other long term (current) drug therapy
CPT/HCPCS: 99283

== ENCOUNTER 2019-06-21 14:07 | Emergency (ER) | payer MEDICAID, OTHER ==
[~2019-06-21] VITALS: Ht 182.9 cm; Wt 120.2 kg
[~2019-06-21 14:07] MED LIST changes: -TRAZ-218 PO; +TRAZ-250 PO
[2019-06-21 14:18] VITALS: BP_SYST 155
--- NOTE | 2019-06-21 14:36 | NUR ---
Patient to ER bed 03 to gown for evaluation. Side rails up.
--- NOTE | 2019-06-21 14:40 | NUR ---
Patient arrived via POV, AAOx4, and ambulatory with steady gait. Patient has history of ulnar nerve surgery in 2011, and patient having pain to left arm, shooting downward toward fingers. Patient states pain has been constant and disrupting his sleep. No recent trauma or injury, +2 radial pulses. Patient states tingling to fingertips. Will continue to follow up and monitor.
--- NOTE | 2019-06-21 14:45 | NUR ---
BUDDY Gonzalez examining patient.
[2019-06-21] MEDS ORDERED: KETOROLAC TROMETHAMINE 60 MG/2 ML VIAL IM ONE (15:00)
[2019-06-21] MEDS ORDERED: DEXAMETHASONE SOD PHOSPHATE 10 MG/ML VIAL IM ONE (15:15)
[2019-06-21] MEDS ORDERED: HYDROcodone/ACETAMIN 7.5-325 MG TAB PO ONE (15:15)
--- NOTE | 2019-06-21 15:22 | NUR ---
Report received from NIKKI Jesus. Will assume all care.
--- NOTE | 2019-06-21 15:32 | NUR ---
Patient given written and verbal discharge instructions and verbalizes understanding. ER MD discussed with patient the results and treatment provided. Patient in stable condition. ID arm band removed. Rx of medrol dosepak, motrin and tramadol given. Patient educated on pain management and to follow up with PMD. Pain Scale 0/10 Opportunity for questions provided and answered. Medication side effect fact sheet provided.
[2019-06-21 15:36] VITALS: BP_SYST 150
== END 2019-06-21 15:32 | disposition home or self-care (01) ==
LOC: SED 14:07
DX: G56.92 Unspecified mononeuropathy of left upper limb (principal); R03.0 Elevated blood-pressure reading, without diagnosis of hypertension; F41.9 Anxiety disorder, unspecified; F43.10 Post-traumatic stress disorder, unspecified; E78.00 Pure hypercholesterolemia, unspecified; Z90.49 Acquired absence of other specified parts of digestive tract; Z79.899 Other long term (current) drug therapy
CPT/HCPCS: 96372; 99283; J1100; J1885

== ENCOUNTER 2019-08-08 17:15 | Emergency (ER) | payer MEDICAID, OTHER ==
[~2019-08-08] VITALS: Ht 182.9 cm; Wt 117.9 kg
[2019-08-08 17:41] VITALS: BP_SYST 127
[2019-08-08 18:12] VITALS: BP_SYST 127
== END 2019-08-08 18:08 | disposition home or self-care (01) ==
LOC: SED 17:15
DX: F31.9 Bipolar disorder, unspecified (principal); I10 Essential (primary) hypertension; F41.9 Anxiety disorder, unspecified; E78.00 Pure hypercholesterolemia, unspecified; Z76.0 Encounter for issue of repeat prescription; Z79.899 Other long term (current) drug therapy
CPT/HCPCS: 99283

== ENCOUNTER 2019-10-21 16:09 | Emergency (ER) | payer MEDICAID, OTHER ==
[~2019-10-21] VITALS: Ht 182.9 cm; Wt 117.9 kg
[2019-10-21 16:33] VITALS: BP_SYST 108
[2019-10-21] MEDS ORDERED: ATEN-41 PO (16:33)
[2019-10-21] MEDS ORDERED: ACET-2165 PO (16:33)
[2019-10-21] MEDS ORDERED: IBUP-1017 PO (16:33)
--- NOTE | 2019-10-21 16:37 | NUR ---
PATIENT PRESENTS TO THE ER WITH HX OF RIGHT TESTICULAR PAIN FOR THREE DAYS; NO TRAUMA, NO OTHER REMARKABLE S/S; PATIENT PLACED IN ER #8 AT [id number]
--- NOTE | 2019-10-21 17:12 | NUR ---
Patient AAO x 4 c/o right testicular pain that began on 10/18/19. Patient denies any other associated symptoms. Patient reports history of HTN, cholecystectomy, and rhinoplasty. No signs or symptoms of acute distress noted.
--- NOTE | 2019-10-21 17:29 | NUR ---
ER Dr. Han at bedside examining patient.
[2019-10-21] MEDS ORDERED: KETOROLAC TROMETHAMINE 60 MG/2 ML VIAL IM ONE (17:30)
--- NOTE | 2019-10-21 17:35 | NUR ---
Patient transported to radiology ambulatory, accompanied by blend technician.
--- NOTE | 2019-10-21 17:55 | NUR ---
Returns to ER department from radiology. Placed on school bus monitor, blood pressure machine and pulse oximeter.
[2019-10-21 18:10] LABS: BILIRUBIN,URINE NEGATIVE (NEGATIVE); BLOOD, URINE 2+ (NEGATIVE); CLARITY/URINE CLEAR (CLEAR); COLOR,URINE YELLOW (YELLOW); GLUCOSE,URINE NEGATIVE (NEGATIVE); KETONES,URINE NEGATIVE (NEGATIVE); LEUKOCYTE ESTERASE ,URINE NEGATIVE (NEGATIVE); NITRITE, URINE NEGATIVE (NEGATIVE); PH,URINE 6.5 (5.0-8.0); PROTEIN URINE NEGATIVE (NEGATIVE); UROBILINOGEN,URINE 0.2 (0.2-1.0)
[2019-10-21 18:31] LABS: RBC,URINE 0-3 /HPF (0-3)
[2019-10-21 18:32] LABS: BACTERIA,URINE RARE /HPF (None Seen); WBC,URINE NONE SEEN /HPF (0-3)
[2019-10-21 18:33] VITALS: BP_SYST 129
--- NOTE | 2019-10-21 18:37 | NUR ---
REASSESSMENT BY ERMD; ACI GIVEN AND PATIENT INDICATED FULL UNDERSTANDING; DISCHARGED AMBULATORY WITH SYMPTOMS RESOLVED; IMPROVED
[2019-10-31 15:08] LABS: CHLAMYDIA TRACHOMATIS NAA Negative (Negative); NEISSERIA GONORRHOEAE NAA Negative (Negative)
== END 2019-10-21 18:37 | disposition home or self-care (01) ==
LOC: SED 16:09
DX: N50.811 Right testicular pain (principal); I10 Essential (primary) hypertension; E78.00 Pure hypercholesterolemia, unspecified; F31.9 Bipolar disorder, unspecified; F41.9 Anxiety disorder, unspecified; Z79.899 Other long term (current) drug therapy
CPT/HCPCS: 76870; 81000; 87491; 87591; 96372; 99284; J1885

== ENCOUNTER 2020-01-02 04:03 | Emergency (ER) | payer MEDICAID, OTHER ==
[~2020-01-02] VITALS: Ht 182.9 cm; Wt 120.2 kg
[~2020-01-02 04:03] MED LIST changes: +ACET-2165 PO; +ATEN-41 PO; +IBUP-1017 PO
[2020-01-02 04:11] VITALS: BP_SYST 146
[2020-01-02] MEDS ORDERED: NACL 0.9% 1,000 ML IV ONE (04:30)
[2020-01-02 04:43] LABS: BARBITURATE, URINE NEGATIVE (NEG <=200); BENZODIAZEPINE, URINE NEGATIVE (NEG <=150); CANNABINOID, URINE POSITIVE (NEG <=50); COCAINE, URINE NEGATIVE (NEG <=150); METHAMPHETAMINES SCREEN,URINE NEGATIVE (NEG <=500); OPIATE, URINE NEGATIVE (NEG <=100); PHENCYCLIDINE SCREEN,URINE NEGATIVE (NEG <=25); UR TRICYCLIC ANTIDEPRESSANTS NEGATIVE (NEG <=300); URINE AMPHETAMINE NEGATIVE (NEG <=500); URINE METHADONE NEGATIVE (NEG <=200); URINE OXYCODONE SCREEN NEGATIVE (NEG <=100); URINE PROPOXYPHENE SCREEN NEGATIVE (NEG <=300)
[2020-01-02 05:21] VITALS: BP_SYST 136
== END 2020-01-02 05:21 | disposition home or self-care (01) ==
LOC: SED 04:03
DX: F12.90 Cannabis use, unspecified, uncomplicated (principal); I10 Essential (primary) hypertension; F41.9 Anxiety disorder, unspecified; E78.00 Pure hypercholesterolemia, unspecified; N45.1 Epididymitis; Z79.899 Other long term (current) drug therapy
CPT/HCPCS: 80307; 99283; J7030

== ENCOUNTER 2020-08-10 10:38 | Emergency (ER) | payer MEDICAID, OTHER ==
[~2020-08-10] VITALS: Ht 182.9 cm; Wt 113.4 kg
[2020-08-10 10:38] VITALS: BP_SYST 154
[~2020-08-10 10:38] MED LIST changes: -ACET-2165 PO; +ACET325T PO
--- NOTE | 2020-08-10 10:38 | NUR ---
BROUGHT BACK TO BED #4 AND TRIAGED, REPORT GIVEN TO JEAN CARLOS
--- NOTE | 2020-08-10 10:40 | NUR ---
pt arrives from home w/ left sided rib pain 03/02 x 1 wk. pt reports falling and injuring the area. Has been rotating tylenol w. motrin.
--- NOTE | 2020-08-10 10:44 | NUR ---
Note davie in ED - 08/10/20 at 1052 by CHRISNSPENCER Patient to bed 4 to [facility] for evaluation. Side rails up.
--- NOTE | 2020-08-10 10:49 | NUR ---
ER at bedside examining patient.
[2020-08-10] MEDS ORDERED: HYDROcodone/ACETAMIN 5-325 MG TAB (NORCO/ VICODIN) PO ONE (11:00)
[2020-08-10] MEDS ORDERED: KETOROLAC TROMETHAMINE 30 MG VIAL IM ONE (11:00)
--- NOTE | 2020-08-10 11:11 | NUR ---
MEDICATED THE PT W/ TORADOL PER MD ORDER
--- NOTE | 2020-08-10 11:11 | NUR ---
Patient transported to radiology via , accompanied by X-RAY TECH.
[2020-08-10 12:01] VITALS: BP_SYST 154
--- NOTE | 2020-08-10 12:02 | NUR ---
Patient given written and verbal discharge instructions and verbalizes understanding. ER MD discussed with patient the results and treatment provided. Patient in stable condition. ID arm band removed. Rx of lidocaine, tylenol w/ codeine, naprosyn given. Patient educated on pain management and to follow up with PMD. Pain Scale 3/10. Opportunity for questions provided and answered. Medication side effect fact sheet provided.
== END 2020-08-10 12:02 | disposition home or self-care (01) ==
LOC: SED 10:38
DX: S20.212A Contusion of left front wall of thorax, initial encounter (principal); R07.89 Other chest pain; I10 Essential (primary) hypertension; E11.9 Type 2 diabetes mellitus without complications; E78.00 Pure hypercholesterolemia, unspecified; Z79.899 Other long term (current) drug therapy; W18.39XA Other fall on same level, initial encounter; Y93.61 Activity, american tackle football; Y92.89 Other specified places as the place of occurrence of the external cause; Y99.8 Other external cause status
CPT/HCPCS: 71100; 96372; 99283; J1885

== ENCOUNTER 2022-01-22 08:32 | Emergency (ER) | payer OTHER, MEDICAID ==
[~2022-01-22] VITALS: Ht 182.9 cm; Wt 110.2 kg
[2022-01-22 08:40] VITALS: BP_SYST 143
[2022-01-22] MEDS ORDERED: MORPHINE 4 MG INJ. 4 MG/ML VIAL IVP ONE ×2 (09:00→11:00)
[2022-01-22] MEDS ORDERED: NACL 0.9% 1,000 ML IV ONE (09:00)
[2022-01-22] MEDS ORDERED: KETOROLAC TROMETHAMINE 30 MG VIAL IVP ONE (09:00)
[2022-01-22 09:25] LABS: BASOPHILS # (AUTO) 0.1 K/uL (0.0-0.2); BASOPHILS % (AUTO) 0.8 % (0.0-2.0); EOSINOPHILS # (AUTO) 0.1 K/uL (0.0-0.4); EOSINOPHILS % (AUTO) 1.1 % (0.0-4.0); HEMATOCRIT 44.7 % (36-54); HEMOGLOBIN 15.3 g/dL (14.0-18.0); LYMPHOCYTES # (AUTO) 1.5 K/uL (1.0-5.5); LYMPHOCYTES % (AUTO) 23.9 % (20.5-51.5); MEAN CORPUSCULAR HEMOGLOBIN 31 pg (27-31); MEAN CORPUSCULAR HGB CONC 34 % (32-36); MEAN CORPUSCULAR VOLUME 90 fL (79.0-98.0); MONOCYTES # (AUTO) 0.5 K/uL (0.0-1.0); NEUTROPHILS # (AUTO) 4.2 K/uL (1.8-7.7); NEUTROPHILS % (AUTO) 66.2 % (40.0-70.0); PLATELET COUNT (AUTO) 236 K/uL (130-430); RED BLOOD CELL COUNT(AUTO) 4.95 MIL/uL (4.2-6.2); RED CELL DISTRIBUTION WIDTH 13.8 % (9.0-15.0); WHITE BLOOD COUNT (AUTO) 6.3 K/uL (4.8-10.8)
[2022-01-22 09:37] LABS: CALCIUM 8.7 mg/dL (8.4-11.0); CREATININE 1.01 mg/dL (0.55-1.30); POTASSIUM 3.4 mmol/L (3.5-5.1)
[2022-01-22 09:42] LABS: ALBUMIN 3.9 g/dL (3.4-4.8); TOTAL BILIRUBIN 0.3 mg/dL (0.0-1.0)
[2022-01-22 09:54] LABS: BILIRUBIN,URINE NEGATIVE (NEGATIVE); CLARITY/URINE CLEAR (CLEAR); COLOR,URINE YELLOW (YELLOW); GLUCOSE,URINE NEGATIVE (NEGATIVE); KETONES,URINE NEGATIVE (NEGATIVE); LEUKOCYTE ESTERASE ,URINE NEGATIVE (NEGATIVE); NITRITE, URINE NEGATIVE (NEGATIVE); PROTEIN URINE NEGATIVE (NEGATIVE); UROBILINOGEN,URINE 0.2 (0.2-1.0)
[2022-01-22 09:58] LABS: BLOOD, URINE TRACE (NEGATIVE)
[2022-01-22 10:13] LABS: BACTERIA,URINE RARE /HPF (None Seen); MUCUS,URINE 1+ /LPF (None Seen); RBC,URINE 0-3 /HPF (0-3); WBC,URINE 0-3 /HPF (0-3)
[2022-01-22] MEDS ORDERED: NAPR-688 PO (11:23)
[2022-01-22] MEDS ORDERED: OXYC-128 PO ×2 (11:24→14:08)
[2022-01-22 11:43] VITALS: BP_SYST 134
== END 2022-01-22 11:43 | disposition home or self-care (01) ==
LOC: SED 08:32
DX: I86.1 Scrotal varices (principal); N43.3 Hydrocele, unspecified; R82.81 Pyuria; N50.3 Cyst of epididymis; R10.32 Left lower quadrant pain; I10 Essential (primary) hypertension; E78.00 Pure hypercholesterolemia, unspecified; F41.9 Anxiety disorder, unspecified; Z79.899 Other long term (current) drug therapy
CPT/HCPCS: 36415; 74176; 76376; 76870; 80053; 81000; 83690; 85025; 87491; 96361; 96374; 96375; 96376; 99284; J1885; J2270; J7030

== ENCOUNTER 2023-08-07 09:00 | Emergency (ER) | payer MEDICAID, OTHER ==
[~2023-08-07] VITALS: Ht 182.9 cm; Wt 117.9 kg
[2023-08-07 09:00] VITALS: RESP 19
[~2023-08-07 09:00] MED LIST changes: -ARIP2TAB3 PO; +ARIP5TAB42 PO; +NAPR-688 PO; +OXYC-128 PO
[2023-08-07 09:30] LABS: INFLUENZA TYPE A Negative (NEGATIVE); INFLUENZA TYPE B NEGATIVE (NEGATIVE)
[2023-08-07] MEDS ORDERED: PSEU30TA36 PO (09:43)
[2023-08-07] MEDS ORDERED: IBUP-1971 PO (09:43)
[2023-08-07] MEDS ORDERED: IBUPROFEN 800 MG TABLET PO ONE (10:15)
[2023-08-07] MEDS ORDERED: HYDROcodone/ACETAMIN 5-325 MG TAB (NORCO/ VICODIN) PO ONE (10:15)
[2023-08-07 10:31] LABS: BASOPHILS % (AUTO) 0.6 % (0.0-2.0); EOSINOPHILS # (AUTO) 0.2 K/uL (0.0-0.4); EOSINOPHILS % (AUTO) 3.1 % (0.0-4.0); HEMATOCRIT 50.3 % (36-54); HEMOGLOBIN 16.9 g/dL (14.0-18.0); LYMPHOCYTES # (AUTO) 1.4 K/uL (1.0-5.5); LYMPHOCYTES % (AUTO) 20.5 % (20.5-51.5); MEAN CORPUSCULAR HEMOGLOBIN 30 pg (27-31); MEAN CORPUSCULAR HGB CONC 34 % (32-36); MEAN CORPUSCULAR VOLUME 91 fL (79.0-98.0); MONOCYTES # (AUTO) 0.5 K/uL (0.0-1.0); NEUTROPHILS # (AUTO) 4.7 K/uL (1.8-7.7); NEUTROPHILS % (AUTO) 68.8 % (40.0-70.0); PLATELET COUNT (AUTO) 270 K/uL (130-430); RED BLOOD CELL COUNT(AUTO) 5.55 MIL/uL (4.2-6.2); RED CELL DISTRIBUTION WIDTH 13.8 % (9.0-15.0); WHITE BLOOD COUNT (AUTO) 6.8 K/uL (4.8-10.8)
[2023-08-07 10:38] LABS: ERYTHROCYTE SEDIMENTATION RATE 1 MM/HR (0-15)
[2023-08-07 10:48] LABS: CALCIUM 9.2 mg/dL (8.4-11.0); CREATININE 0.94 mg/dL (0.55-1.30); POTASSIUM 3.6 mmol/L (3.5-5.1)
[2023-08-07 11:02] LABS: ALBUMIN 3.7 g/dL (3.4-4.8); TOTAL BILIRUBIN 0.3 mg/dL (0.0-1.0); TOTAL PROTEIN, SERUM 7.3 g/dL (6.4-8.3)
[2023-08-07] MEDS ORDERED: TRAM50TA2 PO ×3 (11:44→12:27)
[2023-08-07 12:02] VITALS: BP_SYST 128; PULSE 72; RESP 20; TEMP 97.8; O2SAT 98
[2023-08-09] MEDS ORDERED: HYDR-3927 PO (20:39)
== END 2023-08-07 12:02 | disposition home or self-care (01) ==
LOC: SED 09:00
DX: J40 Bronchitis, not specified as acute or chronic (principal); R05.9 Cough, unspecified; R50.9 Fever, unspecified; R51.9 Headache, unspecified; I10 Essential (primary) hypertension; Z79.899 Other long term (current) drug therapy; Z20.822 Contact with and (suspected) exposure to COVID-19
CPT/HCPCS: 36415; 70450-TC; 71045; 76376; 80053; 85025; 85651-TC; 99284

== ENCOUNTER 2023-08-09 17:48 | Emergency (ER) | payer OTHER ==
[~2023-08-09] VITALS: Ht 182.9 cm; Wt 117.9 kg
[~2023-08-09 17:48] MED LIST changes: +IBUP-1971 PO; +PSEU30TA36 PO; +TRAM50TA2 PO
[2023-08-09 18:12] VITALS: BP_SYST 164; PULSE 107; RESP 18; TEMP 96.8; O2SAT 97
[2023-08-09] MEDS ORDERED: HYDROcodone/ACETAMIN 10-325 MG TAB PO ONE (18:30)
[2023-08-09] MEDS ORDERED: HYDR-3927 PO ×2 (20:39)
[2023-08-09] MEDS ORDERED: cloNIDine HCL 0.1 MG TABLET PO ONE (21:15)
[2023-08-09 21:55] VITALS: BP_SYST 176; PULSE 94; RESP 16; TEMP 97.4; O2SAT 98
[2023-08-10] MEDS ORDERED: HYDR-3917 PO (13:28)
== END 2023-08-09 21:59 | disposition home or self-care (01) ==
LOC: SED 17:48
DX: I16.0 Hypertensive urgency (principal); R51.9 Headache, unspecified; I10 Essential (primary) hypertension; Z79.899 Other long term (current) drug therapy
CPT/HCPCS: 70450-TC; 76376; 99284

== ENCOUNTER 2023-12-07 10:25 | Emergency (ER) | payer OTHER ==
[~2023-12-07] VITALS: Ht 182.9 cm; Wt 117.0 kg
[~2023-12-07 10:25] MED LIST changes: +HYDR-3917 PO
[2023-12-07 10:30] VITALS: BP_SYST 160; PULSE 63; RESP 18; TEMP 97.8; O2SAT 96
[2023-12-07] MEDS: HYDROcodone/ACETAMIN 10-325 MG TAB PO ONE (11:18)
[2023-12-07] MEDS ORDERED: TRAM50TA2 PO (12:01)
[2023-12-07 13:15] VITALS: BP_SYST 142; PULSE 71; RESP 18; TEMP 98; O2SAT 96
== END 2023-12-07 13:16 | disposition home or self-care (01) ==
LOC: SED 10:25
DX: M67.833 Other specified disorders of tendon, right wrist (principal); M25.521 Pain in right elbow; I10 Essential (primary) hypertension; Z79.899 Other long term (current) drug therapy
CPT/HCPCS: 99283